=== PATIENT | female | born 1945 | race Caucasian/White ===

== ENCOUNTER 2019-07-05 07:26 | Day surgery (SDC) | payer MEDICARE ==
[~2019-07-05 07:26] MED LIST: ALPR0.5T8 PO; HYDR-3971 PO; HYDR25TA PO; MECL-111 PO; OMEP20 PO; OXYB5 PO; PREG75 PO; SODIUM CHLORIDE 0.9% 1,000 ML IV ONE; SUCR1TAB PO; WARF3TAB29 PO
[2019-07-05] MEDS ORDERED: PROPOFOL 1% 20 ML VIAL IVP ONE (07:27)
== END 2019-07-05 10:15 | disposition home or self-care (01) ==
LOC: SURGERY 07:26
PROVIDERS: ATTEND Internal Medicine Gastroenterology
DX: R13.10 Dysphagia, unspecified (principal); K29.50 Unspecified chronic gastritis without bleeding; B96.89 Other specified bacterial agents as the cause of diseases classified elsewhere; F41.9 Anxiety disorder, unspecified; I10 Essential (primary) hypertension; G89.29 Other chronic pain; K21.9 Gastro-esophageal reflux disease without esophagitis; Z87.19 Personal history of other diseases of the digestive system; D50.9 Iron deficiency anemia, unspecified; M85.80 Other specified disorders of bone density and structure, unspecified site; M17.11 Unilateral primary osteoarthritis, right knee; Z98.890 Other specified postprocedural states; G62.9 Polyneuropathy, unspecified; Z80.0 Family history of malignant neoplasm of digestive organs
CPT/HCPCS: 43239; 88305; 88312; 88313; C1769; J2704; J7030